=== PATIENT | female | born 1980 | race Caucasian/White ===

== ENCOUNTER 2022-08-11 13:12 | Inpatient (IN) | payer OTHER | END 2022-08-12 00:04 | disposition short-term general hospital (02) | DRG 951 | LOC: ICUW 13:12 | PROVIDERS: ADMIT Internal Medicine | DX: Z52.9 Donor of unspecified organ or tissue (principal) | CPT/HCPCS: 0241U; 36415; 36600; 36620; 71045; 80048; 80076; 81001; 82150; 82247; 82248; 82803; 82947; 83036; 83690; 83735; 84100; 84132; 85025; 85610; 85730; 86850; 86900; 86901; 87040; 87086; 93005; 93010; 94003; J0295; J1650; J1815; J1940; J1953; J3475; J3480; J7030; J7040; J7060; J7070 ==